=== PATIENT | female | born 1940 | race Caucasian/White ===

== ENCOUNTER → 2017-09-22 | Outpatient (CLI) | payer MEDICARE ==
[~2017-09-22] MED LIST: ADVAIR 250-501 EACH INH; ALENDRONATE SOD70 MG PO; ASPIRIN81 MG PO; COREG12.5 MG PO; COREG3.125 MG PO; DEXILANT60 MG PEG; DEXILANT60 MG PO; FOLIC ACID1 MG PO; LASIX40 MG PO; LISINOPRIL-HCT1 EACH PO; LISINOPRIL10 MG PO; LISINOPRIL2.5 MG PO; METHOTREXATE2.5 MG PO; MOBIC7.5 MG PO; MONTELUKAST SOD10 MG PO; MULTI-VITAMIN1 EACH PO; NORTRIPTYLINE H25 MG PO; POTASSIUM CHLO10 ME1 PO; PRAVASTATIN SOD20 MG PO; PRAVASTATIN SOD40 MG PO; PREDNISONE2.5 MG PO; PROAIR HFA INH8.5 GM INH; SIMVASTATIN20 MG PO; VESICARE5 MG PO; VITAMIN D31000 UNIT PO; ZEGERID 20 MG1 EACH PO
== END ==
LOC: SLEEP 20:11
PROVIDERS: ATTEND Internal Medicine Pulmonary Disease
DX: G47.33 Obstructive sleep apnea (adult) (pediatric) (principal)
CPT/HCPCS: 95811

== ENCOUNTER 2017-11-11 15:12 | Emergency (ER) | payer MEDICARE ==
[~2017-11-11] VITALS: Ht 156.2 cm; Wt 94.3 kg
--- NOTE | 2017-11-11 18:11 | Diagnostic Imaging Report ---
PROCEDURE:X-RAY RIGHT LOWER LEG COMPARISON:None. INDICATIONS:INFECTION AT SUTURE SITE LATERAL ANKLE FINDINGS: Normal mineralization. No acute, displaced fracture or dislocation. Status post total right knee replacement with intact hardware. Multiple phleboliths noted in the soft tissues anterior to the proximal and mid tibia. No areas of cortical erosion or destruction. Degenerative changes at the ankle mortise. CONCLUSION: No acute abnormalities. Saad López M.D. Dictated by: Saad López M.D. on 11/11/2017 at 18:15 Electronically approved by: Saad López M.D. on 11/11/2017 at 18:15
[2017-11-11] MEDS ORDERED: HYDROCODONE 7.5MG/IBUPROFEN 200MG TAB PO PRN (18:15)
[2017-11-11 20:58] VITALS: BP 148/83
[2017-11-11] MEDS ORDERED: NEOMYCIN/POLYMYXIN/BACITRACIN 15 GM TUBE TOP ONE (21:00)
[2017-11-11] MEDS ORDERED: BACITRACIN ZINC 0.9GM TP ONE (21:15)
== END 2017-11-11 21:37 | disposition home or self-care (01) ==
LOC: ER 15:12
DX: Z48.02 Encounter for removal of sutures (principal); L03.115 Cellulitis of right lower limb
CPT/HCPCS: 93971; 99283

== ENCOUNTER 2017-11-16 13:19 | Inpatient (IN) | payer MEDICARE ==
[~2017-11-16] VITALS: Ht 154.9 cm; Wt 103.9 kg
[2017-11-16] MEDS ORDERED: SODIUM CHLORIDE 0.9% 1000ML 1,000 ML IV STA (13:38)
[2017-11-16] MEDS ORDERED: VANCOMYCIN 1GM/NS 250 ML 250 ML IV SCH (13:45)
[2017-11-16] MEDS ORDERED: ASPIRIN 81 MG CHEW TAB PO ONE (13:45)
[2017-11-16 14:17] LABS: BASOPHILS % 0.4 % (0.0-1.0); EOSINOPHILS # (AUTO) 0.1 (0.0-0.4); EOSINOPHILS % 1.2 % (0.0-6.0); HEMATOCRIT 28.1 % (34.2-44.1); HEMOGLOBIN 8.9 g/dL (12.0-16.0); LYMPHOCYTES # (AUTO) 1.7 (1.0-3.2); LYMPHOCYTES % 17.4 % (18.0-39.1); MEAN CORPUSCULAR HEMOGLOBIN 28.2 pg (28-32); MEAN CORPUSCULAR HGB CONC 31.7 g/dL (31-35); MEAN CORPUSCULAR VOLUME 88.9 fL (81-99); MONOCYTES % 10.2 % (4.4-11.3); NEUTROPHILS # (AUTO) 6.8 (2.1-6.9); NEUTROPHILS % 70.3 % (38.7-80.0); PLATELET COUNT 333 x10e3/uL (140-360); RED BLOOD COUNT 3.16 x10e6/uL (3.6-5.1); RED CELL DISTRIBUTION WIDTH 14.6 % (11.7-14.4)
[2017-11-16 14:25] LABS: INR 3.05; PARTIAL THROMBOPLASTIN TIME 37.8 seconds (23.8-35.5); PROTHROMBIN TIME 29.6 seconds (11.9-14.5)
[2017-11-16] MEDS: SODIUM CHLORIDE 0.9% 1000ML 1,000 ML IV SCH (14:53)
--- NOTE | 2017-11-16 14:58 | Diagnostic Imaging Report ---
PROCEDURE:X-RAY RIGHT LOWER LEG COMPARISON:None. INDICATIONS:R/O GAS / OSTEOMYLITIS FINDINGS: Decreased mineralization. Status post total knee replacement with intact hardware. No evidence of cortical erosion or destruction. No acute fracture or dislocation. Degenerative changes in the right tibiotalar joint. Soft tissue convexity, at the level of the lateral aspect of the distal tibia, consistent with area of injury. Multiple soft tissue phleboliths. CONCLUSION: No radiographic evidence of osteomyelitis. Soft tissue convexity at the level of the lateral aspect of distal tibia, consistent with area of injury. No acute displaced fracture or dislocation. Saad López M.D. Dictated by: Saad López M.D. on 11/16/2017 at 15:03 Electronically approved by: Saad López M.D. on 11/16/2017 at 15:03
[2017-11-16] MEDS ORDERED: MORPHINE SULFATE 2 MG/ML SYR IV STA (15:02)
[2017-11-16] MEDS ORDERED: ONDANSETRON HCL INJ 2 MG/ML VIAL IV STA (15:02)
[2017-11-16 16:32] LABS: ANION GAP 14.4 mmol/L (8-16); CREATININE, SERUM 1.6 mg/dL (0.6-1.1); POTASSIUM 4.4 mmol/L (3.6-5.1)
[2017-11-16 16:45] VITALS: BP 147/67
[2017-11-16 17:10] LABS: CREATINE KINASE MB 0.9 ng/mL (0-5.0)
[2017-11-16] MEDS: PIPER-TAZ 3.375 GM 50 ML IV SCH ×2 (17:45→23:56)
[2017-11-16] MEDS ORDERED: XARELTO10 MG PO (17:50)
[2017-11-16 17:53] VITALS: BP 147/67
[2017-11-16 18:14] VITALS: BP 147/67
[2017-11-16 18:26] VITALS: BP 147/67
[2017-11-16 20:00] VITALS: BP 110/54
[2017-11-16] MEDS: VANCOMYCIN 1GM/NS 250 ML 250 ML IV SCH (20:18)
[2017-11-16 21:00] VITALS: BP 110/54
[2017-11-16 21:29] LABS: ALBUMIN 3.7 g/dL (3.5-5.0); ALBUMIN/GLOBULIN RATIO 1.4 (0.8-2.0); CALCIUM 9.9 mg/dL (8.4-10.2)
[2017-11-17] VITALS (7 sets, daily range): BP systolic 105–154; BP diastolic 54–67
[2017-11-17 00:05] LABS: BILIRUBIN,URINE NEGATIVE (NEGATIVE); CLARITY,URINE CLEAR (CLEAR); COLOR,URINE YELLOW (YELLOW); KETONES,URINE NEGATIVE (NEGATIVE); LEUKOCYTE ESTERASE ,URINE NEGATIVE (NEGATIVE); NITRITE,URINE NEGATIVE (NEGATIVE); PROTEIN,URINE DIPSTICK NEGATIVE (NEGATIVE); URINE UROBILINOGEN 0.2 mg/dL (0.2 - 1)
[2017-11-17 00:23] LABS: BACTERIA,URINE FEW /HPF; EPITHELIAL CELLS,URINE RARE /LPF; TRANSITIONAL EPI CELLS,URINE FEW; WBC,URINE (MAN) 0-5 /HPF (0-5)
[2017-11-17] MEDS: SODIUM CHLORIDE 0.9% 1000ML 1,000 ML IV SCH ×2 (04:59→16:37)
[2017-11-17] MEDS: PIPER-TAZ 3.375 GM 50 ML IV SCH ×3 (05:02→17:52)
[2017-11-17 05:09] LABS: BASOPHILS % 0.4 % (0.0-1.0); EOSINOPHILS # (AUTO) 0.2 (0.0-0.4); EOSINOPHILS % 2.1 % (0.0-6.0); HEMOGLOBIN 7.9 g/dL (12.0-16.0); LYMPHOCYTES # (AUTO) 2.1 (1.0-3.2); LYMPHOCYTES % 30.1 % (18.0-39.1); MEAN CORPUSCULAR HEMOGLOBIN 28.4 pg (28-32); MEAN CORPUSCULAR HGB CONC 31.6 g/dL (31-35); MEAN CORPUSCULAR VOLUME 89.9 fL (81-99); MONOCYTES % 14.1 % (4.4-11.3); NEUTROPHILS # (AUTO) 3.8 (2.1-6.9); PLATELET COUNT 282 x10e3/uL (140-360); RED BLOOD COUNT 2.78 x10e6/uL (3.6-5.1); RED CELL DISTRIBUTION WIDTH 14.7 % (11.7-14.4)
[2017-11-17 05:33] LABS: ALBUMIN 3.1 g/dL (3.5-5.0); ALBUMIN/GLOBULIN RATIO 1.2 (0.8-2.0); ANION GAP 12.7 mmol/L (8-16); CALCIUM 9.2 mg/dL (8.4-10.2); CREATININE, SERUM 1.52 mg/dL (0.57-1.11); POTASSIUM 4.7 mmol/L (3.5-5.1)
--- NOTE | 2017-11-17 07:53 | Consultation ---
DATE OF CONSULTATION: November 17, 2017 HISTORY OF PRESENT ILLNESS: Patient is a 77-year-old female who was a cruise ship and injured her leg. She has developed necrosis of the skin and swelling at the site of the leg injury. She was admitted to the hospital. She has pain in the leg. She has not had any drainage. She has not had any fever. PAST MEDICAL HISTORY: Significant for rheumatoid arthritis, coronary artery disease, hypertension. She had a recent pulmonary embolus a couple of months ago. She has chronic kidney disease. PREVIOUS SURGERIES: Include tonsil and adenoidectomy, appendectomy, hysterectomy, knee surgery. MEDICATIONS: At home are T[place], aspirin, Coreg, Advair, Prinivil, Singulair, and multivitamins. ALLERGIES: PENICILLIN, CHLORAMPHENICOL, LEVAQUIN, AND MUPIROCIN. FAMILY HISTORY: Noncontributory. SOCIAL HISTORY: The patient does not smoke cigarettes or drink alcohol. REVIEW OF SYSTEMS: She has not had any fever. PHYSICAL EXAMINATION GENERAL: The patient is awake and alert. VITALS: Were normal. She is afebrile. HEENT: Reveals no scleral icterus. NECK: Has no masses. LUNGS: Equal breath sounds are clear. CARDIAC: Regular rate and rhythm with no murmur. ABDOMEN: Soft without tenderness. EXTREMITIES: On the right leg and the lower leg, there is an area of swelling and erythema with overlying skin necrosis. The area is about 8 cm in diameter. There slight surrounding erythema. There is no drainage. NEUROLOGIC: Grossly intact. ASSESSMENT: This is a 77-year-old female with hematoma in the right leg with some cellulitis. She had been on blood thinners, and her PT and INR are very prolonged. She will probably require some surgical debridement this area, but plan to hold off for a couple days as she has been on Xarelto until yesterday. This was explained to the patient. Tentatively plan to schedule the surgery for 2 days from now. Thank you for asking me to see Ms. Whitman. Job#: [id number] RI
[2017-11-17] MEDS: CARVEDILOL 3.125 MG TAB PO SCH ×2 (08:33→16:37)
[2017-11-17] MEDS: LISINOPRIL 10 MG TAB PO SCH ×2 (08:34→16:37)
[2017-11-17] MEDS: SALMETEROL/FLUTICASONE 250/50 INH SCH ×2 (09:00→17:00)
[2017-11-17] MEDS ORDERED: CARVEDILOL 3.125 MG TAB PO SCH (09:00)
[2017-11-17] MEDS: VANCOMYCIN 1GM/NS 250 ML 250 ML IV SCH ×2 (09:29→21:00)
[2017-11-17] MEDS: ASPIRIN 81 MG CHEW TAB PO SCH (09:29)
[2017-11-17] MEDS: MULTIVITAMINS/MINERALS TAB PO SCH (09:30)
[2017-11-17] MEDS: MONTELUKAST SODIUM 10 MG TAB PO SCH (21:00)
[2017-11-17] MEDS: PRAVASTATIN 20 MG TAB PO SCH (21:00)
[2017-11-18] VITALS (8 sets, daily range): BP systolic 107–158; BP diastolic 53–66
[2017-11-18] MEDS: SODIUM CHLORIDE 0.9% 1000ML 1,000 ML IV SCH ×2 (05:06→21:00)
[2017-11-18 05:55] LABS: BASOPHILS # (AUTO) 0.1 (0.0-0.1); BASOPHILS % 0.8 % (0.0-1.0); EOSINOPHILS # (AUTO) 0.2 (0.0-0.4); EOSINOPHILS % 3.1 % (0.0-6.0); HEMATOCRIT 24.6 % (34.2-44.1); HEMOGLOBIN 7.5 g/dL (12.0-16.0); LYMPHOCYTES % 30.6 % (18.0-39.1); MEAN CORPUSCULAR HGB CONC 30.5 g/dL (31-35); MEAN CORPUSCULAR VOLUME 91.8 fL (81-99); MONOCYTES # (AUTO) 0.9 (0.2-0.8); MONOCYTES % 13.3 % (4.4-11.3); NEUTROPHILS # (AUTO) 3.3 (2.1-6.9); NEUTROPHILS % 51.9 % (38.7-80.0); PLATELET COUNT 247 x10e3/uL (140-360); RED BLOOD COUNT 2.68 x10e6/uL (3.6-5.1); RED CELL DISTRIBUTION WIDTH 14.7 % (11.7-14.4)
[2017-11-18] MEDS: PIPER-TAZ 3.375 GM 50 ML IV SCH ×4 (06:00→18:13)
[2017-11-18 06:21] LABS: ALBUMIN 2.9 g/dL (3.5-5.0); ALBUMIN/GLOBULIN RATIO 1.1 (0.8-2.0); ANION GAP 12.2 mmol/L (8-16); CALCIUM 8.9 mg/dL (8.4-10.2); CREATININE, SERUM 1.2 mg/dL (0.57-1.11); POTASSIUM 4.2 mmol/L (3.5-5.1)
[2017-11-18] MEDS: SALMETEROL/FLUTICASONE 250/50 INH SCH ×2 (08:35→18:55)
[2017-11-18] MEDS: CARVEDILOL 3.125 MG TAB PO SCH ×2 (09:21→17:18)
[2017-11-18] MEDS: ASPIRIN 81 MG CHEW TAB PO SCH (09:21)
[2017-11-18] MEDS: MULTIVITAMINS/MINERALS TAB PO SCH (09:21)
[2017-11-18] MEDS: VANCOMYCIN 1GM/NS 250 ML 250 ML IV SCH ×2 (09:21→21:00)
[2017-11-18] MEDS: LISINOPRIL 10 MG TAB PO SCH ×2 (09:22→17:18)
[2017-11-18] MEDS ORDERED: ONDANSETRON HCL INJ 2 MG/ML VIAL IV PRN (12:30)
--- NOTE | 2017-11-18 12:57 | Diagnostic Imaging Report ---
PROCEDURE: A single AP view of the chest (2 films were obtained both having same date and time stamp). COMPARISON: None. INDICATIONS: PICC LINE PLACEMENT FINDINGS: Lines/tubes: One film shows the PICC extending into the neck. Another film shows the PICC extending into the appropriate location with tip overlying the SVC. Lungs: The lungs are well inflated and clear. There is no evidence of pneumonia or pulmonary edema. Pleura: There is no pleural effusion or pneumothorax. Heart and mediastinum: The heart and the mediastinum are unremarkable. Bones: No acute bony abnormality. IMPRESSION: 1. No acute cardiopulmonary disease. 2. PICC line as described above. Franco Wynn D.O. Dictated by: Franco Wynn D.O. on 11/18/2017 at 13:02 Electronically approved by: Franco Wynn D.O. on 11/18/2017 at 13:02
[2017-11-18] MEDS: MONTELUKAST SODIUM 10 MG TAB PO SCH (21:00)
[2017-11-18] MEDS: PRAVASTATIN 20 MG TAB PO SCH (21:00)
[2017-11-18] MEDS: HYDROCODONE/APAP 10MG-325MG TAB PO PRN (21:55)
[2017-11-19] VITALS (7 sets, daily range): BP systolic 114–166; BP diastolic 52–68
[2017-11-19] MEDS: PIPER-TAZ 3.375 GM 50 ML IV SCH ×4 (05:34→18:15)
[2017-11-19] MEDS: SALMETEROL/FLUTICASONE 250/50 INH SCH ×2 (07:13→19:05)
[2017-11-19] MEDS: SODIUM CHLORIDE 0.9% 1000ML 1,000 ML IV SCH ×2 (08:39→22:47)
[2017-11-19] MEDS: ASPIRIN 81 MG CHEW TAB PO SCH (09:00)
[2017-11-19] MEDS: MULTIVITAMINS/MINERALS TAB PO SCH (09:00)
[2017-11-19] MEDS: VANCOMYCIN 1GM/NS 250 ML 250 ML IV SCH ×3 (09:00→21:00)
[2017-11-19] MEDS: LISINOPRIL 10 MG TAB PO SCH ×2 (09:15→18:15)
[2017-11-19] MEDS: CARVEDILOL 3.125 MG TAB PO SCH ×2 (09:15→18:15)
[2017-11-19] MEDS ORDERED: FENTANYL CITRATE/PF 100MCG/2 ML INJ ONE ×2 (11:03→16:33)
[2017-11-19] MEDS ORDERED: MIDAZOLAM HCL 2 MG/2 ML VIAL ONE (11:03)
[2017-11-19] MEDS ORDERED: SEVOFLURANE INHAL SOLN 250 ML PEN BTL ONE (11:12)
[2017-11-19] MEDS ORDERED: LIDOCAINE HCL 2% LOCAL INJ 5 ML SDV VIAL INJ ONE (11:12)
[2017-11-19] MEDS ORDERED: PROPOFOL IV EMULSION 10 MG/ML 20 ML VIAL ONE (11:12)
[2017-11-19] MEDS ORDERED: ONDANSETRON HCL INJ 2 MG/ML VIAL ONE (11:12)
--- NOTE | 2017-11-19 16:53 | Operative Report ---
DATE OF PROCEDURE: November 19, 2017 PREOPERATIVE DIAGNOSIS: Necrotic wound, right leg. POSTOPERATIVE DIAGNOSIS: Necrotic wound, right leg. PROCEDURE PERFORMED: Excisional debridement of necrotic wound, right leg. Skin and subcutaneous tissue 65 square centimeters. 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 ANESTHESIA: General. INDICATIONS AND FINDINGS: Patient is a 77-year-old female who suffered injury while on a cruise. She developed an area of tissue necrosis in the right leg. Surgery was about 8 x 8 cm area of necrotic skin, subcutaneous tissue with underlying hematoma which was excised. TECHNIQUE: After adequate general endotracheal anesthesia with patient in supine position, the right leg was prepped and draped in sterile fashion with Betadine solution. Necrotic skin was excised using electrocautery. This was skin and subcutaneous tissue area of 8 x 8 cm. There was some hematoma sample taken for culture and sensitivity. The hemostasis was achieved with electrocautery. The wound was then irrigated with saline. It was then dressed open with saline moistened gauze and sterile dressing applied. Patient tolerated procedure well. Estimated blood loss was 10 mL. There were no complications. All counts were correct. Patient was taken to the recovery room in satisfactory condition. Job#: [id number] cc:PAPA ANDRE MD
[2017-11-19] MEDS: MONTELUKAST SODIUM 10 MG TAB PO SCH (21:56)
[2017-11-19] MEDS: PRAVASTATIN 20 MG TAB PO SCH (21:57)
[2017-11-19] MEDS: HYDROCODONE/APAP 10MG-325MG TAB PO PRN (21:57)
[2017-11-20] VITALS (7 sets, daily range): BP systolic 106–151; BP diastolic 54–65
[2017-11-20] MEDS: PIPER-TAZ 3.375 GM 50 ML IV SCH ×5 (00:07→23:29)
[2017-11-20] MEDS: SALMETEROL/FLUTICASONE 250/50 INH SCH ×2 (07:21→19:40)
[2017-11-20] MEDS: LISINOPRIL 10 MG TAB PO SCH ×2 (08:40→17:00)
[2017-11-20] MEDS: CARVEDILOL 3.125 MG TAB PO SCH ×2 (08:40→16:55)
[2017-11-20] MEDS: ASPIRIN 81 MG CHEW TAB PO SCH (08:40)
[2017-11-20] MEDS: MULTIVITAMINS/MINERALS TAB PO SCH (08:40)
[2017-11-20] MEDS: VANCOMYCIN 1GM/NS 250 ML 250 ML IV SCH ×2 (09:30→21:34)
[2017-11-20] MEDS: SODIUM CHLORIDE 0.9% 1000ML 1,000 ML IV SCH ×2 (11:19→23:29)
[2017-11-20] MEDS: PRAVASTATIN 20 MG TAB PO SCH (21:34)
[2017-11-20] MEDS: MONTELUKAST SODIUM 10 MG TAB PO SCH (21:35)
[2017-11-20] MEDS: HYDROCODONE/APAP 10MG-325MG TAB PO PRN (21:45)
[2017-11-21] VITALS (8 sets, daily range): BP systolic 127–188; BP diastolic 60–80
[2017-11-21] MEDS: PIPER-TAZ 3.375 GM 50 ML IV SCH ×4 (05:11→23:54)
[2017-11-21 05:57] LABS: BASOPHILS % 0.7 % (0.0-1.0); EOSINOPHILS # (AUTO) 0.3 (0.0-0.4); EOSINOPHILS % 5.2 % (0.0-6.0); HEMOGLOBIN 7.1 g/dL (12.0-16.0); LYMPHOCYTES # (AUTO) 1.6 (1.0-3.2); LYMPHOCYTES % 29.3 % (18.0-39.1); MEAN CORPUSCULAR HEMOGLOBIN 28.4 pg (28-32); MEAN CORPUSCULAR VOLUME 91.6 fL (81-99); MONOCYTES # (AUTO) 0.7 (0.2-0.8); MONOCYTES % 12.7 % (4.4-11.3); NEUTROPHILS # (AUTO) 2.8 (2.1-6.9); NEUTROPHILS % 51.9 % (38.7-80.0); PLATELET COUNT 231 x10e3/uL (140-360); RED CELL DISTRIBUTION WIDTH 14.7 % (11.7-14.4)
[2017-11-21 06:12] LABS: HEMATOCRIT 22.9 % (34.2-44.1)
[2017-11-21 06:16] LABS: ANION GAP 8.7 mmol/L (8-16); BLOOD UREA NITROGEN 12 mg/dL (7-26); BUN/CREATININE RATIO 16 (6-25); CALCIUM 8.3 mg/dL (8.4-10.2); CARBON DIOXIDE 20 mmol/L (22-29); CHLORIDE 116 mmol/L (98-107); CREATININE, SERUM 0.77 mg/dL (0.57-1.11); EST GLOMERULAR FILTRATION RATE > 60 ML/MIN (60-); GLUCOSE 86 mg/dL (74-118); POTASSIUM 3.7 mmol/L (3.5-5.1); SODIUM 141 mmol/L (136-145)
[2017-11-21] MEDS ORDERED: FUROSEMIDE INJ 10 MG/ML 2 ML VIAL IV PRN (06:30)
[2017-11-21] MEDS ORDERED: SODIUM CHLORIDE 0.9% 250ML 250 ML IV ONE (06:30)
[2017-11-21] MEDS: SALMETEROL/FLUTICASONE 250/50 INH SCH ×2 (07:30→19:52)
[2017-11-21] MEDS: CARVEDILOL 3.125 MG TAB PO SCH ×2 (08:16→17:00)
[2017-11-21] MEDS: LISINOPRIL 10 MG TAB PO SCH ×2 (08:16→17:05)
[2017-11-21] MEDS: ASPIRIN 81 MG CHEW TAB PO SCH (08:16)
[2017-11-21] MEDS: MULTIVITAMINS/MINERALS TAB PO SCH (08:16)
[2017-11-21 09:28] LABS: % IRON SATURATION 11 % (15-50); IRON 24 ug/dL (50-170); TOTAL IRON BINDING CAPACITY 225 ug/dL (261-478); TRANSFERRIN 161 mg/dL (180-382)
[2017-11-21] MEDS: VANCOMYCIN 1GM/NS 250 ML 250 ML IV SCH ×2 (09:30→21:20)
[2017-11-21] MEDS ORDERED: SODIUM CHLORIDE 0.9% 250ML 250 ML ONE (10:18)
[2017-11-21] MEDS: SODIUM CHLORIDE 0.9% 1000ML 1,000 ML IV SCH (13:59)
[2017-11-21] MEDS: HYDROCODONE/APAP 10MG-325MG TAB PO PRN ×2 (14:40→21:20)
[2017-11-21] MEDS: PRAVASTATIN 20 MG TAB PO SCH (21:20)
[2017-11-21] MEDS: MONTELUKAST SODIUM 10 MG TAB PO SCH (21:20)
[2017-11-22] VITALS (9 sets, daily range): BP systolic 111–164; BP diastolic 53–68
[2017-11-22] MEDS: PIPER-TAZ 3.375 GM 50 ML IV SCH ×3 (05:15→17:49)
[2017-11-22] MEDS: SODIUM CHLORIDE 0.9% 1000ML 1,000 ML IV SCH ×2 (05:15→15:22)
[2017-11-22 05:52] LABS: BASOPHILS # (AUTO) 0.1 (0.0-0.1); BASOPHILS % 0.9 % (0.0-1.0); EOSINOPHILS # (AUTO) 0.3 (0.0-0.4); EOSINOPHILS % 3.9 % (0.0-6.0); HEMATOCRIT 28.1 % (34.2-44.1); HEMOGLOBIN 8.9 g/dL (12.0-16.0); LYMPHOCYTES % 28.4 % (18.0-39.1); MEAN CORPUSCULAR HEMOGLOBIN 28.3 pg (28-32); MEAN CORPUSCULAR HGB CONC 31.7 g/dL (31-35); MEAN CORPUSCULAR VOLUME 89.5 fL (81-99); MONOCYTES # (AUTO) 0.9 (0.2-0.8); MONOCYTES % 13.5 % (4.4-11.3); NEUTROPHILS # (AUTO) 3.6 (2.1-6.9); NEUTROPHILS % 52.6 % (38.7-80.0); PLATELET COUNT 256 x10e3/uL (140-360); RED BLOOD COUNT 3.14 x10e6/uL (3.6-5.1); RED CELL DISTRIBUTION WIDTH 15.4 % (11.7-14.4)
[2017-11-22 06:17] LABS: ALANINE AMINOTRANSFERASE 8 IU/L (0-55); ALBUMIN 2.9 g/dL (3.5-5.0); ALBUMIN/GLOBULIN RATIO 1.1 (0.8-2.0); ALKALINE PHOSPHATASE 42 IU/L (40-150); ANION GAP 9.8 mmol/L (8-16); BLOOD UREA NITROGEN 15 mg/dL (7-26); BUN/CREATININE RATIO 18 (6-25); CALCIUM 9.1 mg/dL (8.4-10.2); CARBON DIOXIDE 22 mmol/L (22-29); CHLORIDE 113 mmol/L (98-107); CREATININE, SERUM 0.84 mg/dL (0.57-1.11); EST GLOMERULAR FILTRATION RATE > 60 ML/MIN (60-); GLUCOSE 86 mg/dL (74-118); POTASSIUM 3.8 mmol/L (3.5-5.1); SODIUM 141 mmol/L (136-145)
[2017-11-22] MEDS: SALMETEROL/FLUTICASONE 250/50 INH SCH ×2 (09:00→19:27)
[2017-11-22] MEDS: VANCOMYCIN 1GM/NS 250 ML 250 ML IV SCH ×2 (09:00→21:00)
[2017-11-22] MEDS: ASPIRIN 81 MG CHEW TAB PO SCH (09:22)
[2017-11-22] MEDS: CARVEDILOL 3.125 MG TAB PO SCH ×2 (09:22→17:50)
[2017-11-22] MEDS: MULTIVITAMINS/MINERALS TAB PO SCH (09:22)
[2017-11-22] MEDS: LISINOPRIL 10 MG TAB PO SCH ×2 (09:22→17:49)
[2017-11-22] MEDS: HYDROCODONE/APAP 10MG-325MG TAB PO PRN ×2 (15:23→21:39)
[2017-11-22] MEDS: MONTELUKAST SODIUM 10 MG TAB PO SCH (21:25)
[2017-11-22] MEDS: PRAVASTATIN 20 MG TAB PO SCH (21:25)
[2017-11-23] VITALS (8 sets, daily range): BP systolic 122–156; BP diastolic 57–86
[2017-11-23] MEDS: PIPER-TAZ 3.375 GM 50 ML IV SCH ×3 (00:24→12:18)
[2017-11-23] MEDS: SODIUM CHLORIDE 0.9% 1000ML 1,000 ML IV SCH ×2 (05:13→08:21)
[2017-11-23] MEDS: SALMETEROL/FLUTICASONE 250/50 INH SCH ×2 (07:35→20:05)
[2017-11-23] MEDS: LISINOPRIL 10 MG TAB PO SCH ×2 (08:25→17:40)
[2017-11-23] MEDS: CARVEDILOL 3.125 MG TAB PO SCH ×2 (08:25→17:40)
[2017-11-23] MEDS: ASPIRIN 81 MG CHEW TAB PO SCH (08:25)
[2017-11-23] MEDS: MULTIVITAMINS/MINERALS TAB PO SCH (08:25)
[2017-11-23] MEDS: HYDROCODONE/APAP 10MG-325MG TAB PO PRN ×2 (08:40→21:22)
[2017-11-23] MEDS: VANCOMYCIN 1GM/NS 250 ML 250 ML IV SCH ×2 (09:00→21:31)
[2017-11-23] MEDS: MONTELUKAST SODIUM 10 MG TAB PO SCH (21:20)
[2017-11-23] MEDS: PRAVASTATIN 20 MG TAB PO SCH (21:20)
[2017-11-24] MEDS ORDERED: PIPER-TAZ 3.375 GM 50 ML IV SCH
[2017-11-24] MEDS: HYDROCODONE/APAP 10MG-325MG TAB PO PRN (02:01)
[2017-11-24] MEDS: HYDROXYZINE HCL 25 MG TAB PO PRN ×2 (05:06→14:50)
[2017-11-24] MEDS ORDERED: METHYLPREDNISOLONE SOD SUCC 40 MG/ML VIAL IV ONE (05:30)
[2017-11-24] MEDS: CEFTRIAXONE SOD 1 GM VIAL IV SCH (06:08)
[2017-11-24 06:21] VITALS: BP 134/63
[2017-11-24 08:00] VITALS: BP 118/67
[2017-11-24] MEDS: CARVEDILOL 3.125 MG TAB PO SCH ×2 (08:44→17:00)
[2017-11-24] MEDS: MULTIVITAMINS/MINERALS TAB PO SCH (08:44)
[2017-11-24] MEDS: VANCOMYCIN 1GM/NS 250 ML 250 ML IV SCH ×2 (08:44→21:15)
[2017-11-24] MEDS: LISINOPRIL 10 MG TAB PO SCH ×2 (08:44→17:00)
[2017-11-24] MEDS: ASPIRIN 81 MG CHEW TAB PO SCH (08:44)
[2017-11-24] MEDS: SALMETEROL/FLUTICASONE 250/50 INH SCH ×3 (09:00→20:15)
[2017-11-24 12:00] VITALS: BP 173/96
[2017-11-24 12:36] VITALS: BP 118/67
[2017-11-24 16:00] VITALS: BP 126/63
[2017-11-24 20:00] VITALS: BP 132/59
[2017-11-24] MEDS: PRAVASTATIN 20 MG TAB PO SCH (21:44)
[2017-11-24] MEDS: DIPHENHYDRAMINE HCL INJ 50 MG/ML VIAL IV PRN (21:44)
[2017-11-24] MEDS: MONTELUKAST SODIUM 10 MG TAB PO SCH (21:44)
[2017-11-25] VITALS (8 sets, daily range): BP systolic 136–182; BP diastolic 64–77
[2017-11-25] MEDS: DIPHENHYDRAMINE HCL INJ 50 MG/ML VIAL IV PRN ×4 (03:48→23:35)
[2017-11-25] MEDS: CEFTRIAXONE SOD 1 GM VIAL IV SCH (06:11)
[2017-11-25] MEDS: METHYLPREDNISOLONE SOD SUCC 125 MG/2ML VIAL IV SCH ×3 (06:34→22:23)
[2017-11-25] MEDS: SALMETEROL/FLUTICASONE 250/50 INH SCH ×2 (07:12→20:15)
[2017-11-25] MEDS: LISINOPRIL 10 MG TAB PO SCH ×2 (09:00→17:45)
[2017-11-25] MEDS: CARVEDILOL 3.125 MG TAB PO SCH ×2 (09:00→17:45)
[2017-11-25] MEDS: MULTIVITAMINS/MINERALS TAB PO SCH (09:06)
[2017-11-25] MEDS: ASPIRIN 81 MG CHEW TAB PO SCH (09:06)
[2017-11-25] MEDS: MONTELUKAST SODIUM 10 MG TAB PO SCH (20:40)
[2017-11-25] MEDS: PRAVASTATIN 20 MG TAB PO SCH (20:40)
[2017-11-26] VITALS (8 sets, daily range): BP systolic 123–197; BP diastolic 58–84
--- NOTE | 2017-11-26 05:38 | Progress Note ---
DATE: November 26, 2017 The patient states her rash is a little bit better, but the itching is still very intense. No new complaints. OBJECTIVE VITAL SIGNS: Stable. She was afebrile, but her vital signs have shown an increased systolic blood pressure since the Solu-Medrol. GENERAL: She is in no apparent distress lying in bed. SKIN: Does show the rash to be fading, but still extensive especially on the left side. CARDIOVASCULAR: Regular rate and rhythm. LUNGS: Clear to auscultation bilaterally. ABDOMEN: Good bowel sounds. Soft and nontender. EXTREMITIES: Show no clubbing or cyanosis. The wound was dressed, but the patient showed me pictures and the base is very clean. It appears to be healing well. NEUROLOGICAL: Nonfocal. ASSESSMENT AND PLAN 1. Cellulitis: Continue with current care. 2. Allergic reaction with dermatitis: Continue with the Solu-Medrol since it is much better. Will anticipate discharge in 1-2 days as the rash improves. 3. Chronic obstructive pulmonary disease: Continue with current care. 4. Hypertension: Continue with current care and monitoring. 5. Anemia, stable. Please see hospital chart for details. Job#: [id number] SD
[2017-11-26] MEDS: CEFTRIAXONE SOD 1 GM VIAL IV SCH (06:23)
[2017-11-26] MEDS: METHYLPREDNISOLONE SOD SUCC 125 MG/2ML VIAL IV SCH ×3 (06:23→21:03)
[2017-11-26] MEDS: MULTIVITAMINS/MINERALS TAB PO SCH (08:55)
[2017-11-26] MEDS: CARVEDILOL 3.125 MG TAB PO SCH ×2 (08:55→17:40)
[2017-11-26] MEDS: ASPIRIN 81 MG CHEW TAB PO SCH (08:55)
[2017-11-26] MEDS: LISINOPRIL 10 MG TAB PO SCH ×2 (08:55→17:40)
[2017-11-26] MEDS: DIPHENHYDRAMINE HCL 30 GM TUBE TOP SCH ×4 (10:00→21:03)
[2017-11-26] MEDS: SALMETEROL/FLUTICASONE 250/50 INH SCH (17:00)
[2017-11-26] MEDS: MONTELUKAST SODIUM 10 MG TAB PO SCH (20:58)
[2017-11-26] MEDS ORDERED: SIMVASTATIN 20 MG TAB PO SCH (21:00)
[2017-11-26] MEDS: DIPHENHYDRAMINE HCL INJ 50 MG/ML VIAL IV PRN (22:19)
[2017-11-27 00:57] VITALS: BP 156/71
[2017-11-27 06:05] VITALS: BP 148/67
[2017-11-27] MEDS: CEFTRIAXONE SOD 1 GM VIAL IV SCH (06:26)
[2017-11-27] MEDS: METHYLPREDNISOLONE SOD SUCC 125 MG/2ML VIAL IV SCH (06:30)
[2017-11-27 08:00] VITALS: BP 148/65
[2017-11-27] MEDS: LISINOPRIL 10 MG TAB PO SCH (09:24)
[2017-11-27] MEDS: CARVEDILOL 3.125 MG TAB PO SCH (09:24)
[2017-11-27] MEDS: MULTIVITAMINS/MINERALS TAB PO SCH (09:24)
[2017-11-27] MEDS: DIPHENHYDRAMINE HCL 30 GM TUBE TOP SCH (09:24)
[2017-11-27] MEDS: ASPIRIN 81 MG CHEW TAB PO SCH (09:24)
[2017-11-27 12:00] VITALS: BP 169/77
[2017-11-27] MEDS ORDERED: BACTRIM DS TAB1 EACH PO (12:36)
== END 2017-11-27 12:47 | disposition home or self-care (01) | DRG 571 ==
LOC: ER 13:19 → ERHOLD 14:12 → MED/SURG2 16:38
PROVIDERS: ADMIT Internal Medicine; ATTEND Internal Medicine
PROC: 02HV33Z Insertion of Infusion Device into Superior Vena Cava, Percutaneous Approach (ICD-10-PCS; 2017-11-18)
PROC: 0JBN0ZZ Excision of Right Lower Leg Subcutaneous Tissue and Fascia, Open Approach (ICD-10-PCS; principal; 2017-11-19 16:02)
PROC: 30233N1 Transfusion of Nonautologous Red Blood Cells into Peripheral Vein, Percutaneous Approach (ICD-10-PCS; 2017-11-21)
DX: L03.115 Cellulitis of right lower limb (principal); Z68.41 Body mass index [BMI] 40.0-44.9, adult; I13.0 Hypertensive heart and chronic kidney disease with heart failure and stage 1 through stage 4 chronic kidney disease, or unspecified chronic kidney disease; N17.9 Acute kidney failure, unspecified; N18.3 Chronic kidney disease, stage 3 (moderate); S81.801A Unspecified open wound, right lower leg, initial encounter; I25.10 Atherosclerotic heart disease of native coronary artery without angina pectoris; M06.9 Rheumatoid arthritis, unspecified; D64.9 Anemia, unspecified; E66.01 Morbid (severe) obesity due to excess calories; Z86.711 Personal history of pulmonary embolism; Z88.1 Allergy status to other antibiotic agents; Z88.0 Allergy status to penicillin; Z88.8 Allergy status to other drugs, medicaments and biological substances; Z79.01 Long term (current) use of anticoagulants; J44.9 Chronic obstructive pulmonary disease, unspecified; L23.89 Allergic contact dermatitis due to other agents; L27.1 Localized skin eruption due to drugs and medicaments taken internally; I50.9 Heart failure, unspecified; T36.0X5A Adverse effect of penicillins, initial encounter; Y92.230 Patient room in hospital as the place of occurrence of the external cause; Z96.651 Presence of right artificial knee joint; I25.2 Old myocardial infarction; K21.9 Gastro-esophageal reflux disease without esophagitis
CPT/HCPCS: 36415; 36430; 36569; 71045; 80048; 80053; 80202; 81001; 82550; 82553; 82948; 83540; 83605; 83735; 84466; 84484; 85025; 85610; 85730; 86850; 86900; 86920; 87040; 87071; 87075; 87086; 87205; 88304; 93005; 94640; 96367; 96374; 96375; 96376; 99284; J0696; J1200; J1940; J2001; J2250; J2270; J2405; J2543; J2920; J2930; J3370; J3410; J7030; J7050; P9016

== ENCOUNTER 2018-04-11 11:15 | Observation (INO) | payer MEDICARE ==
[~2018-04-11] VITALS: Ht 154.9 cm; Wt 103.9 kg
[~2018-04-11 11:15] MED LIST changes: +BACTRIM DS TAB1 EACH PO; +XARELTO10 MG PO
[2018-04-11] MEDS ORDERED: ASPIRIN 81 MG CHEW TAB PO ONE ×2 (11:30→16:00)
[2018-04-11] MEDS ORDERED: KEFLEX500 MG PO (12:02)
[2018-04-11 12:06] LABS: BASOPHILS % 0.4 % (0.0-1.0); EOSINOPHILS # (AUTO) 0.1 (0.0-0.4); EOSINOPHILS % 1.1 % (0.0-6.0); HEMOGLOBIN 11.2 g/dL (12.0-16.0); LYMPHOCYTES # (AUTO) 2.1 (1.0-3.2); LYMPHOCYTES % 27.8 % (18.0-39.1); MEAN CORPUSCULAR HEMOGLOBIN 28.5 pg (28-32); MEAN CORPUSCULAR HGB CONC 30.3 g/dL (31-35); MEAN CORPUSCULAR VOLUME 94.1 fL (81-99); MONOCYTES # (AUTO) 0.8 (0.2-0.8); MONOCYTES % 10.2 % (4.4-11.3); NEUTROPHILS # (AUTO) 4.5 (2.1-6.9); NEUTROPHILS % 60.4 % (38.7-80.0); PLATELET COUNT 141 x10e3/uL (140-360); RED BLOOD COUNT 3.93 x10e6/uL (3.6-5.1); RED CELL DISTRIBUTION WIDTH 15.7 % (11.7-14.4)
[2018-04-11 12:11] LABS: INR 0.95; PARTIAL THROMBOPLASTIN TIME 24.8 seconds (23.8-35.5); PROTHROMBIN TIME 13.5 seconds (11.9-14.5)
--- NOTE | 2018-04-11 12:11 | Diagnostic Imaging Report ---
Examination: Single AP view of the chest. COMPARISON: None. INDICATION: Chest pain DISCUSSION: Lines/tubes: None. Lungs: The lungs are well inflated and clear. No pneumonia or pulmonary edema. Pleura: No pleural effusion or pneumothorax. Heart and mediastinum: The heart and the mediastinum are unremarkable. Bones and soft tissues: No acute bony abnormalities. IMPRESSION: 1. No acute cardiopulmonary abnormalities. Signed by: Dr. Baldo Tilley M.D. on 04/11/2018 12:07 PM
[2018-04-11 12:45] LABS: CLARITY,URINE CLEAR (CLEAR); COLOR,URINE YELLOW (YELLOW); LEUKOCYTE ESTERASE ,URINE NEGATIVE (NEGATIVE); NITRITE,URINE NEGATIVE (NEGATIVE); PROTEIN,URINE DIPSTICK NEGATIVE (NEGATIVE)
[2018-04-11 12:46] LABS: BILIRUBIN,URINE NEGATIVE (NEGATIVE); KETONES,URINE NEGATIVE (NEGATIVE); URINE UROBILINOGEN 0.2 mg/dL (0.2 - 1)
[2018-04-11 12:52] LABS: BACTERIA,URINE MODERATE /HPF; EPITHELIAL CELLS,URINE FEW /LPF; HYALINE CASTS 0-1 (0-1)
[2018-04-11 12:53] LABS: MUCUS,URINE FEW (RARE)
[2018-04-11 13:35] LABS: ALANINE AMINOTRANSFERASE 15 IU/L (0-55); ALBUMIN 3.7 g/dL (3.5-5.0); ALBUMIN/GLOBULIN RATIO 1.4 (0.8-2.0); ALKALINE PHOSPHATASE 43 IU/L (40-150); ANION GAP 14.9 mmol/L (8-16); BLOOD UREA NITROGEN 28 mg/dL (7-26); BUN/CREATININE RATIO 34 (6-25); CALCIUM 9.7 mg/dL (8.4-10.2); CARBON DIOXIDE 20 mmol/L (22-29); CHLORIDE 107 mmol/L (98-107); CREATINE KINASE 46 IU/L (29-168); CREATININE, SERUM 0.82 mg/dL (0.57-1.11); EST GLOMERULAR FILTRATION RATE > 60 ML/MIN (60-); GLUCOSE 95 mg/dL (74-118); POTASSIUM 3.9 mmol/L (3.5-5.1); SODIUM 138 mmol/L (136-145)
[2018-04-11] MEDS ORDERED: MORPHINE SULFATE 2 MG/ML SYR IV PRN (15:45)
[2018-04-11 17:37] LABS: CREATINE KINASE 43 IU/L (29-168)
[2018-04-11 20:00] VITALS: BP 153/67
[2018-04-12] VITALS: BP 139/65
[2018-04-12] MEDS ORDERED: ALBUTEROL SULF 0.083% NEB SOLN 3 ML NEB NEB PRN (00:30)
[2018-04-12 04:00] VITALS: BP 122/59
[2018-04-12 05:38] LABS: BASOPHILS % 0.3 % (0.0-1.0); EOSINOPHILS # (AUTO) 0.1 (0.0-0.4); EOSINOPHILS % 1.7 % (0.0-6.0); HEMOGLOBIN 10.4 g/dL (12.0-16.0); LYMPHOCYTES # (AUTO) 2.7 (1.0-3.2); MEAN CORPUSCULAR HEMOGLOBIN 27.9 pg (28-32); MEAN CORPUSCULAR HGB CONC 31.5 g/dL (31-35); MEAN CORPUSCULAR VOLUME 88.5 fL (81-99); MONOCYTES % 13.2 % (4.4-11.3); NEUTROPHILS # (AUTO) 3.4 (2.1-6.9); NEUTROPHILS % 47.7 % (38.7-80.0); PLATELET COUNT 182 x10e3/uL (140-360); RED BLOOD COUNT 3.73 x10e6/uL (3.6-5.1); RED CELL DISTRIBUTION WIDTH 15.7 % (11.7-14.4)
[2018-04-12 06:02] LABS: CREATINE KINASE 44 IU/L (29-168)
[2018-04-12 06:24] LABS: ALANINE AMINOTRANSFERASE 14 IU/L (0-55); ALBUMIN 3.3 g/dL (3.5-5.0); ALBUMIN/GLOBULIN RATIO 1.2 (0.8-2.0); ALKALINE PHOSPHATASE 37 IU/L (40-150); BLOOD UREA NITROGEN 29 mg/dL (7-26); BUN/CREATININE RATIO 35 (6-25); CALCIUM 9.6 mg/dL (8.4-10.2); CARBON DIOXIDE 21 mmol/L (22-29); CHLORIDE 110 mmol/L (98-107); CHOL/HDL RATIO 3.2 (3.0-3.6); CHOLESTEROL 158 MD/DL (0-199); CREATININE, SERUM 0.83 mg/dL (0.57-1.11); EST GLOMERULAR FILTRATION RATE > 60 ML/MIN (60-); GLUCOSE 88 mg/dL (74-118); HDL CHOLESTEROL 49 MG/DL (40-60); LDL CHOLESTEROL 87 MG/DL (60-130); SODIUM 141 mmol/L (136-145); TRIGLYCERIDES 110 MG/DL (0-149)
--- NOTE | 2018-04-12 06:38 | Diagnostic Imaging Report ---
EXAMINATION: CHEST SINGLE (PORTABLE) INDICATION: Chest pain. COMPARISON: 04/11/2018 FINDINGS: AP view TUBES and LINES: None. LUNGS: Lungs are well inflated. Lungs are clear. There is no evidence of pneumonia or pulmonary edema. PLEURA: No pleural effusion or pneumothorax. HEART AND MEDIASTINUM: The cardiomediastinal silhouette is unremarkable. BONES AND SOFT TISSUES: No acute osseous lesion. Soft tissues are unremarkable. UPPER ABDOMEN: No free air under the diaphragm. IMPRESSION: No acute thoracic abnormality. Signed by: DR. Jossue Tracy MD on 04/12/2018 6:35 AM
[2018-04-12 08:38] VITALS: BP 141/64
[2018-04-12 09:00] VITALS: BP 141/64
[2018-04-12] MEDS ORDERED: LISINOPRIL 10 MG TAB PO SCH (09:00)
[2018-04-12] MEDS ORDERED: CARVEDILOL 3.125 MG TAB PO SCH (09:00)
[2018-04-12] MEDS ORDERED: MULTIVITAMINS/MINERALS TAB PO SCH (09:00)
[2018-04-12] MEDS ORDERED: ASPIRIN 81 MG ENTERIC COATED PO SCH (09:00)
[2018-04-12] MEDS ORDERED: CEPHALEXIN 500 MG CAP PO SCH (09:00)
[2018-04-12 12:09] VITALS: BP 140/67
--- NOTE | 2018-04-12 13:37 | Consultation ---
DATE OF CONSULTATION: CARDIOLOGY CONSULTATION REASON FOR CONSULTATION: Chest pain. HISTORY OF PRESENT ILLNESS: This is a 77-year-old woman who has a history of Takotsubo cardiomyopathy with recovered left ventricular systolic function, asthma, hyperlipidemia, rheumatoid arthritis, gastroesophageal reflux disease, pulmonary embolism, formerly on anticoagulation. However, suffered an intracranial hemorrhage, status post evacuation and inferior vena cava filter placement. The patient was having dental work done after losing a molar cap. The patient received lidocaine with epinephrine, and then experienced chest pain with elevated blood pressures. She reports that her chest pain has completely resolved. She reported a left anterior chest pressure with radiation to the left arm, mild to moderate in intensity, and quickly relieved. No shortness of breath, palpitations or near syncopal symptoms. Upon arrival here, she was mildly hypertensive with 3 sets of negative cardiac enzymes. REVIEW OF SYSTEMS: A 12-point review of systems was conducted, and is negative as above in the HPI. PAST MEDICAL HISTORY: Hypertension, hyperlipidemia, prior Takotsubo cardiomyopathy, prior pulmonary embolism, status post inferior vena cava filter, intracranial hemorrhage, status post evacuation. PAST SURGICAL HISTORY: Craniotomy, inferior vena cava placement. FAMILY HISTORY: No premature coronary artery disease or sudden cardiac . SOCIAL HISTORY: No current illicit drug use, alcohol use or tobacco use. ALLERGIES: PENICILLIN, CHLORAMPHENICOL, LEVOFLOXACIN, MUPIROCIN, AND PIPERACILLIN. MEDICATIONS: See medication reconciliation form. PHYSICAL EXAMINATION VITALS: Temperature is 97.5, heart rate is 55, blood pressure is 140/67, oxygen saturation is 98% on room air, respirations are 18. GENERAL: This is a well-appearing elderly woman lying comfortably in bed in no apparent distress. Alert and oriented times 3. HEENT: Head is normocephalic and atraumatic. Eyes: Extraocular muscles are intact. Anicteric sclerae. NECK: No JVD. No bruits. CARDIOVASCULAR: Regular rate and rhythm. Normal S1 and S2. Mild diastolic murmur heard best at the left lower sternal border. LUNGS: Clear to auscultation. ABDOMEN: Soft, nontender and nondistended. Normoactive bowel sounds. EXTREMITIES: No clubbing, cyanosis or edema. VASCULAR: Two plus pulses. SKIN: Warm, dry and intact. NEUROLOGIC: No focal deficits noted. Cranial nerves grossly intact. PSYCHIATRIC: Normal mood and affect. CARDIOVASCULAR MEDICATIONS: Reviewed. All laboratory data reviewed. Notable for hemoglobin of 10.4. Three sets of negative cardiac enzymes. BNP of 102. Creatinine of 0.83. Chest x-ray shows no acute thoracic abnormality. A 2-D echocardiogram showed a preserved left ventricular systolic function with an estimated ejection fraction of 55% to 60% with mild to moderate aortic regurgitation. IMPRESSION 1. Precordial pain. 2. Hypertension. 3. Bradycardia. 4. Aortic regurgitation. 5. History of pulmonary embolism: Status post anticoagulation and inferior vena cava filter placement. 6. History of intracranial hemorrhage: Status post evacuation. RECOMMENDATIONS: Currently, this patient is asymptomatic. Her electrocardiogram showed no active S/T changes. She has 3 sets of negative cardiac enzymes. Chest x-ray shows no acute thoracic abnormalities. Her left ventricular ejection fraction is preserved. The patient may be discharged from a cardiovascular standpoint with outpatient stress testing. Continue current cardiovascular medications except for Coreg. She was bradycardic and would discontinue this until she is able to tolerate this. Thank you for the consultation. Job#: [id number] MONICA
[2018-04-12] MEDS ORDERED: PRAVASTATIN 20 MG TAB PO SCH (21:00)
[2018-04-12] MEDS ORDERED: MONTELUKAST SODIUM 10 MG TAB PO SCH (21:00)
== END 2018-04-12 12:51 | disposition home or self-care (01) ==
LOC: ER 11:15 → ERHOLD 15:59 → MED/SURG 18:22 → ERHOLD 18:23 → MED/SURG 18:27
PROVIDERS: ADMIT Internal Medicine; ATTEND Internal Medicine
DX: R07.2 Precordial pain (principal); R00.1 Bradycardia, unspecified; R07.89 Other chest pain; R68.84 Jaw pain; I25.10 Atherosclerotic heart disease of native coronary artery without angina pectoris; E78.5 Hyperlipidemia, unspecified; Z86.73 Personal history of transient ischemic attack (TIA), and cerebral infarction without residual deficits; Z87.891 Personal history of nicotine dependence; Z82.49 Family history of ischemic heart disease and other diseases of the circulatory system; Z86.711 Personal history of pulmonary embolism; I35.1 Nonrheumatic aortic (valve) insufficiency; Z88.1 Allergy status to other antibiotic agents; Z88.0 Allergy status to penicillin; Z88.8 Allergy status to other drugs, medicaments and biological substances; I11.0 Hypertensive heart disease with heart failure; I50.22 Chronic systolic (congestive) heart failure; M06.9 Rheumatoid arthritis, unspecified; K21.9 Gastro-esophageal reflux disease without esophagitis
CPT/HCPCS: 36415 ×2; 71045 ×2; 80053 ×2; 80061; 81001; 82550 ×2; 82553 ×2; 83880; 84484 ×2; 85025 ×2; 85610; 85730; 93005; 93306; 94640; 99284; G0378 ×2

== ENCOUNTER → 2019-10-30 | Outpatient (CLI) | payer MEDICARE ==
[~2019-10-30] MED LIST changes: +KEFLEX500 MG PO
== END ==
LOC: RESP 10:40
PROVIDERS: ATTEND Internal Medicine
DX: J45.40 Moderate persistent asthma, uncomplicated (principal)
CPT/HCPCS: 94060; 94727; 94729

== ENCOUNTER 2020-12-06 10:59 | Inpatient (IN) | payer MEDICARE ==
[~2020-12-06] VITALS: Ht 154.9 cm; Wt 88.9 kg
[2020-12-06 11:47] LABS: BASOPHILS # (AUTO) 0.1 (0.0-0.1); BASOPHILS % 0.6 % (0.0-1.0); EOSINOPHILS # (AUTO) 0.2 (0.0-0.4); EOSINOPHILS % 1.8 % (0.0-6.0); HEMATOCRIT 35.7 % (34.2-44.1); HEMOGLOBIN 11.2 g/dL (12.0-16.0); LYMPHOCYTES # (AUTO) 1.2 (1.0-3.2); LYMPHOCYTES % 13.4 % (18.0-39.1); MEAN CORPUSCULAR HEMOGLOBIN 29.2 pg (28-32); MEAN CORPUSCULAR HGB CONC 31.4 g/dL (31-35); MEAN CORPUSCULAR VOLUME 93.2 fL (81-99); MONOCYTES # (AUTO) 0.8 (0.2-0.8); MONOCYTES % 9.4 % (4.4-11.3); NEUTROPHILS # (AUTO) 6.6 (2.1-6.9); NEUTROPHILS % 74.3 % (38.7-80.0); PLATELET COUNT 217 x10e3/uL (140-360); RED BLOOD COUNT 3.83 x10e6/uL (3.6-5.1); RED CELL DISTRIBUTION WIDTH 14.1 % (11.7-14.4)
[2020-12-06 12:22] LABS: ALBUMIN 3.6 g/dL (3.5-5.0); ALBUMIN/GLOBULIN RATIO 1.1 (0.8-2.0); ANION GAP 13.8 mmol/L (8-16); CALCIUM 9.6 mg/dL (8.4-10.2); CREATININE, SERUM 1.26 mg/dL (0.57-1.11); POTASSIUM 3.8 mmol/L (3.5-5.1)
[2020-12-06 12:30] LABS: CREATINE KINASE MB 1.9 ng/mL (0-5.0)
[2020-12-06] MEDS ORDERED: SODIUM CHLORIDE 0.9% 50ML 50 ML ONE (12:58)
[2020-12-06] MEDS ORDERED: IOPAMIDOL 370 MG/ML 200 ML INFUS..BTL INJ ONE (12:58)
[2020-12-06] MEDS ORDERED: SODIUM CHLORIDE 0.9% 500ML 500 ML IV STA (13:15)
[2020-12-06] MEDS: CEFEPIME 1 GM in SODIUM CHLORIDE 0.9% 50ML 50 ML IV SCH (14:28)
[2020-12-06] MEDS ORDERED: Vancomycin IV 1 GM in SODIUM CHLORIDE 0.9% 250ML 250 ML IV SCH (15:00)
[2020-12-07] VITALS (8 sets, daily range): BP systolic 137–167; BP diastolic 61–87
[2020-12-07] MEDS ORDERED: SODIUM CHLORIDE 0.9% 250ML 250 ML ONE (01:13)
[2020-12-07] MEDS: CEFEPIME 1 GM in SODIUM CHLORIDE 0.9% 50ML 50 ML IV SCH ×2 (01:36→14:26)
[2020-12-07] MEDS ORDERED: proair IH (01:56)
[2020-12-07] MEDS ORDERED: albuterol (01:56)
[2020-12-07] MEDS ORDERED: SIMVASTATIN40 MG PO (01:56)
[2020-12-07] MEDS ORDERED: hydrochloroquine PO (01:56)
[2020-12-07] MEDS ORDERED: PREDNISONE5 MG PO (01:56)
[2020-12-07] MEDS ORDERED: NORVASC5 MG PO (02:38)
[2020-12-07] MEDS ORDERED: VESICARE5 MG PO (02:38)
[2020-12-07] MEDS ORDERED: BREO ELLIPTA 21 EACH INH (02:38)
[2020-12-07] MEDS ORDERED: [UNRECOGNIZED DRUG - OTHER] PO (02:38)
[2020-12-07] MEDS: MONTELUKAST SODIUM 10 MG TAB PO SCH ×2 (02:50→20:22)
[2020-12-07] MEDS: METHYLPREDNISOLONE SOD SUCC 40 MG/ML VIAL 1ML IV SCH ×3 (05:44→21:14)
[2020-12-07 06:16] LABS: BASOPHILS % 0.6 % (0.0-1.0); EOSINOPHILS # (AUTO) 0.2 (0.0-0.4); EOSINOPHILS % 2.3 % (0.0-6.0); HEMATOCRIT 31.4 % (34.2-44.1); HEMOGLOBIN 9.6 g/dL (12.0-16.0); LYMPHOCYTES # (AUTO) 1.5 (1.0-3.2); LYMPHOCYTES % 20.6 % (18.0-39.1); MEAN CORPUSCULAR HEMOGLOBIN 28.4 pg (28-32); MEAN CORPUSCULAR HGB CONC 30.6 g/dL (31-35); MEAN CORPUSCULAR VOLUME 92.9 fL (81-99); MONOCYTES # (AUTO) 0.8 (0.2-0.8); MONOCYTES % 11.4 % (4.4-11.3); NEUTROPHILS # (AUTO) 4.7 (2.1-6.9); NEUTROPHILS % 64.5 % (38.7-80.0); PLATELET COUNT 169 x10e3/uL (140-360); RED BLOOD COUNT 3.38 x10e6/uL (3.6-5.1); RED CELL DISTRIBUTION WIDTH 13.9 % (11.7-14.4)
[2020-12-07] MEDS ORDERED: FUROSEMIDE INJ 10 MG/ML 4 ML VIAL IV ONE (06:30)
[2020-12-07 06:41] LABS: ALBUMIN 3.1 g/dL (3.5-5.0); ALBUMIN/GLOBULIN RATIO 1.1 (0.8-2.0); ANION GAP 12.7 mmol/L (8-16); CALCIUM 8.9 mg/dL (8.4-10.2); CREATININE, SERUM 0.82 mg/dL (0.57-1.11); POTASSIUM 3.7 mmol/L (3.5-5.1)
[2020-12-07] MEDS: LISINOPRIL 10 MG TAB PO SCH ×2 (09:42→18:12)
[2020-12-07] MEDS: AMLODIPINE BESYLATE 5 MG TAB PO SCH (09:42)
[2020-12-07] MEDS ORDERED: OMEPRAZOLE-BIC1 EACH PO (09:53)
[2020-12-07] MEDS ORDERED: NASACORT16.9 ML (09:56)
[2020-12-07] MEDS ORDERED: BREO ELLIPTA 11 EACH INH (09:56)
[2020-12-07] MEDS: Vancomycin IV 1 GM in SODIUM CHLORIDE 0.9% 250ML 250 ML IV SCH (18:12)
[2020-12-07] MEDS: ALBUTEROL/IPRATROPIUM 3 ML NEB NEB PRN (19:25)
[2020-12-07] MEDS: BUDESONIDE 0.25 MG/2 ML NEB NEB SCH (19:40)
[2020-12-07] MEDS: SIMVASTATIN 40 MG TAB PO SCH (20:22)
[2020-12-07] MEDS: SOLIFENACIN SUCCINATE 5 MG TAB PO SCH (20:22)
[2020-12-07] MEDS ORDERED: MONTELUKAST SODIUM 10 MG TAB PO SCH (21:00)
[2020-12-08] VITALS (8 sets, daily range): BP systolic 118–148; BP diastolic 69–98
[2020-12-08] MEDS: ALBUTEROL/IPRATROPIUM 3 ML NEB NEB PRN ×4 (02:00→19:45)
[2020-12-08] MEDS: CEFEPIME 1 GM in SODIUM CHLORIDE 0.9% 50ML 50 ML IV SCH ×2 (02:05→14:00)
[2020-12-08] MEDS ORDERED: FUROSEMIDE INJ 10 MG/ML 2 ML VIAL IV ONE (03:00)
[2020-12-08] MEDS ORDERED: FUROSEMIDE INJ 10 MG/ML 4 ML VIAL ONE (03:15)
[2020-12-08] MEDS: METHYLPREDNISOLONE SOD SUCC 40 MG/ML VIAL 1ML IV SCH ×2 (05:41→17:00)
[2020-12-08] MEDS: BUDESONIDE 0.25 MG/2 ML NEB NEB SCH ×2 (07:20→19:45)
[2020-12-08] MEDS: AMLODIPINE BESYLATE 5 MG TAB PO SCH (09:32)
[2020-12-08] MEDS: LISINOPRIL 10 MG TAB PO SCH ×2 (09:32→17:00)
[2020-12-08] MEDS: TRIAMCINOLONE ACETONIDE INH SCH (09:33)
[2020-12-08] MEDS: VILANTEROL INH SCH (09:33)
[2020-12-08] MEDS: SODIUM BICARBONATE PO SCH (09:33)
[2020-12-08] MEDS: FLUTICASONE INH SCH (09:33)
[2020-12-08] MEDS: OMEPRAZOLE PO SCH (09:33)
[2020-12-08] MEDS: Vancomycin IV 1 GM in SODIUM CHLORIDE 0.9% 250ML 250 ML IV SCH (17:00)
[2020-12-08] MEDS: SIMVASTATIN 40 MG TAB PO SCH (21:33)
[2020-12-08] MEDS: SOLIFENACIN SUCCINATE 5 MG TAB PO SCH (21:33)
[2020-12-08] MEDS: MONTELUKAST SODIUM 10 MG TAB PO SCH (21:33)
[2020-12-09] VITALS (7 sets, daily range): BP systolic 115–158; BP diastolic 57–90
[2020-12-09] MEDS: CEFEPIME 1 GM in SODIUM CHLORIDE 0.9% 50ML 50 ML IV SCH ×2 (02:00→14:14)
[2020-12-09] MEDS: FLUTICASONE INH SCH (09:00)
[2020-12-09] MEDS: VILANTEROL INH SCH (09:00)
[2020-12-09] MEDS: TRIAMCINOLONE ACETONIDE INH SCH (09:00)
[2020-12-09] MEDS: OMEPRAZOLE PO SCH (09:00)
[2020-12-09] MEDS: SODIUM BICARBONATE PO SCH (09:00)
[2020-12-09] MEDS: LISINOPRIL 10 MG TAB PO SCH (09:29)
[2020-12-09] MEDS: AMLODIPINE BESYLATE 5 MG TAB PO SCH (09:29)
[2020-12-09] MEDS: METHYLPREDNISOLONE SOD SUCC 40 MG/ML VIAL 1ML IV SCH ×2 (09:29→15:34)
[2020-12-09] MEDS: BUDESONIDE 0.25 MG/2 ML NEB NEB SCH (09:42)
== END 2020-12-09 15:38 | disposition home or self-care (01) | DRG 202 ==
LOC: ER 11:55 → ERHOLD 13:57 → MED/SURG3 22:10
PROVIDERS: ADMIT Internal Medicine; ATTEND Internal Medicine
DX: J45.901 Unspecified asthma with (acute) exacerbation (principal); J44.1 Chronic obstructive pulmonary disease with (acute) exacerbation; Z20.822 Contact with and (suspected) exposure to COVID-19; I25.2 Old myocardial infarction; Z86.718 Personal history of other venous thrombosis and embolism; Z79.01 Long term (current) use of anticoagulants; M19.90 Unspecified osteoarthritis, unspecified site; E78.5 Hyperlipidemia, unspecified; M06.9 Rheumatoid arthritis, unspecified; Z86.711 Personal history of pulmonary embolism; Z86.73 Personal history of transient ischemic attack (TIA), and cerebral infarction without residual deficits; Z96.659 Presence of unspecified artificial knee joint; I12.9 Hypertensive chronic kidney disease with stage 1 through stage 4 chronic kidney disease, or unspecified chronic kidney disease; N18.30 Chronic kidney disease, stage 3 unspecified; D64.9 Anemia, unspecified; E66.9 Obesity, unspecified; Z68.37 Body mass index [BMI] 37.0-37.9, adult
CPT/HCPCS: 36415; 71260; 80053; 82550; 82553; 83605; 84484; 85025; 87040; 94640; 99284; J0692; J1940; J2920; J3370; J7040; J7050; Q9967; U0002

== ENCOUNTER 2021-08-24 18:14 | Emergency (ER) | payer MEDICARE ==
[~2021-08-24] VITALS: Ht 152.4 cm; Wt 83.9 kg
[~2021-08-24 18:14] MED LIST changes: +BREO ELLIPTA 11 EACH INH; +BREO ELLIPTA 21 EACH INH; +NASACORT16.9 ML; +NORVASC5 MG PO; +OMEPRAZOLE-BIC1 EACH PO; +PREDNISONE5 MG PO; +SIMVASTATIN40 MG PO; +[UNRECOGNIZED DRUG - OTHER] PO; +albuterol; +hydrochloroquine PO; +proair IH
[2021-08-24] MEDS ORDERED: SODIUM CHLORIDE 0.9% 500ML 500 ML ONE (21:29)
[2021-08-24] MEDS ORDERED: SODIUM CHLORIDE 0.9% 500ML 500 ML IV ONE (21:30)
[2021-08-24] MEDS ORDERED: MACROBID 100 M100 MG PO (21:39)
[2021-08-24] MEDS ORDERED: CEFTRIAXONE 1 GM VIAL IV ONE (21:45)
[2021-08-24] MEDS ORDERED: CEFTRIAXONE 1 GM VIAL ONE (21:54)
[2021-08-24 22:15] VITALS: BP 131/63
== END 2021-08-24 22:15 | disposition home or self-care (01) ==
LOC: FSED 18:46
DX: R53.1 Weakness (principal); N39.0 Urinary tract infection, site not specified; E86.0 Dehydration; N28.9 Disorder of kidney and ureter, unspecified; I10 Essential (primary) hypertension; I25.2 Old myocardial infarction; Z86.73 Personal history of transient ischemic attack (TIA), and cerebral infarction without residual deficits; Z86.711 Personal history of pulmonary embolism; R94.31 Abnormal electrocardiogram [ECG] [EKG]
CPT/HCPCS: 70450; 71045; 80053; 82553; 83880; 84484; 85025; 93005; 99284; J0696; J7040

== ENCOUNTER 2021-08-29 11:50 | Inpatient (IN) | payer MEDICARE ==
[~2021-08-29] VITALS: Ht 152.4 cm; Wt 86.2 kg
[~2021-08-29 11:50] MED LIST changes: +MACROBID 100 M100 MG PO
[2021-08-29] MEDS ORDERED: HEPARIN 25,000 UNIT 1,500 UNIT in DEXTROSE 5% 250ML 250 ML IV SCH (13:00)
[2021-08-29] MEDS ORDERED: SODIUM CHLORIDE FLUSH 10 ML SYR INJ PRN (13:00)
[2021-08-29] MEDS ORDERED: HEPARIN SOD (PORCINE) 5,000 UNIT/ML VIAL IV ONE ×2 (13:00→13:30)
[2021-08-29 13:16] LABS: BASOPHILS % 0.2 % (0.0-1.0); EOSINOPHILS # (AUTO) 0.1 (0.0-0.4); EOSINOPHILS % 0.5 % (0.0-6.0); HEMATOCRIT 30.5 % (34.2-44.1); HEMOGLOBIN 9.5 g/dL (12.0-16.0); LYMPHOCYTES % 11.4 % (18.0-39.1); MEAN CORPUSCULAR HEMOGLOBIN 29.1 pg (28-32); MEAN CORPUSCULAR HGB CONC 31.1 g/dL (31-35); MEAN CORPUSCULAR VOLUME 93.6 fL (81-99); MONOCYTES % 10.9 % (4.4-11.3); NEUTROPHILS % 76.5 % (38.7-80.0); PLATELET COUNT 173 x10e3/uL (140-360); RED BLOOD COUNT 3.26 x10e6/uL (3.6-5.1); RED CELL DISTRIBUTION WIDTH 13.4 % (11.7-14.4)
[2021-08-29 13:32] LABS: INR 0.96; PROTHROMBIN TIME 13.7 seconds (11.9-14.5)
[2021-08-29 13:33] LABS: PARTIAL THROMBOPLASTIN TIME 25.9 seconds (23.8-35.5)
[2021-08-29] MEDS: HEPARIN 25,000 UNIT 1,200 UNIT in DEXTROSE 5% 250ML 250 ML IV SCH (14:05)
[2021-08-29 14:27] LABS: ALBUMIN 3.4 g/dL (3.5-5.0); ALBUMIN/GLOBULIN RATIO 1.1 (0.8-2.0); CALCIUM 9.1 mg/dL (8.4-10.2); CREATININE, SERUM 1.35 mg/dL (0.57-1.11)
[2021-08-29 17:00] VITALS: BP_SYST 116; BP_SYST 135; BP_DIAS 57; BP_DIAS 62
[2021-08-29 17:23] VITALS: BP 135/62
[2021-08-29] MEDS ORDERED: DEXILANT60 MG PO (17:23)
[2021-08-29 18:23] VITALS: BP 135/62
[2021-08-29 20:00] VITALS: BP 105/62
[2021-08-30] VITALS (7 sets, daily range): BP systolic 98–149; BP diastolic 47–78
[2021-08-30] MEDS: HEPARIN 25,000 UNIT 1,200 UNIT in DEXTROSE 5% 250ML 250 ML IV SCH ×2 (02:00→23:08)
[2021-08-30] MEDS ORDERED: ALBUTEROL SULFATE HFA 8GM INHALATION AEROSOL INH PRN (10:15)
[2021-08-30] MEDS: HYDROCODONE/APAP 5MG-325MG TAB PO PRN ×2 (11:30→18:08)
[2021-08-30] MEDS: LISINOPRIL 10 MG TAB PO SCH (17:00)
[2021-08-30] MEDS: NITROFURANTOIN MACROCRYSTALS 100 MG CAP PO SCH (17:56)
[2021-08-30] MEDS ORDERED: ONDANSETRON HCL INJ 2MG/ML 2ML 2 MG/ML VIAL IV PRN (20:30)
[2021-08-30] MEDS: MONTELUKAST SODIUM 10 MG TAB PO SCH (20:57)
[2021-08-30] MEDS: SIMVASTATIN 40 MG TAB PO SCH (20:57)
[2021-08-30] MEDS ORDERED: HEPARIN 25,000 UNIT DRIP IV ONE (21:28)
[2021-08-31] VITALS (7 sets, daily range): BP systolic 98–142; BP diastolic 46–66
[2021-08-31 05:53] LABS: BASOPHILS # (AUTO) 0.1 (0.0-0.1); BASOPHILS % 0.9 % (0.0-1.0); EOSINOPHILS # (AUTO) 0.2 (0.0-0.4); EOSINOPHILS % 2.3 % (0.0-6.0); HEMATOCRIT 27.7 % (34.2-44.1); HEMOGLOBIN 8.5 g/dL (12.0-16.0); LYMPHOCYTES # (AUTO) 1.7 (1.0-3.2); LYMPHOCYTES % 24.2 % (18.0-39.1); MEAN CORPUSCULAR HEMOGLOBIN 29.3 pg (28-32); MEAN CORPUSCULAR HGB CONC 30.7 g/dL (31-35); MEAN CORPUSCULAR VOLUME 95.5 fL (81-99); MONOCYTES % 14.4 % (4.4-11.3); NEUTROPHILS % 57.5 % (38.7-80.0); PLATELET COUNT 181 x10e3/uL (140-360); RED CELL DISTRIBUTION WIDTH 13.5 % (11.7-14.4)
[2021-08-31 06:11] LABS: ANION GAP 12.3 mmol/L (8-16); CALCIUM 8.2 mg/dL (8.4-10.2); CREATININE, SERUM 1.03 mg/dL (0.57-1.11); POTASSIUM 4.3 mmol/L (3.5-5.1)
[2021-08-31] MEDS: HYDROCODONE/APAP 5MG-325MG TAB PO PRN ×2 (06:30→20:43)
[2021-08-31] MEDS ORDERED: AMLODIPINE BESYLATE 5 MG TAB PO SCH (09:00)
[2021-08-31] MEDS: NASALCORT NS SCH (09:00)
[2021-08-31] MEDS: BREO ELLIPTA INH SCH (09:00)
[2021-08-31] MEDS: NITROFURANTOIN MACROCRYSTALS 100 MG CAP PO SCH ×2 (09:48→18:08)
[2021-08-31] MEDS: MULTIVITAMINS/MINERALS TAB PO SCH (09:49)
[2021-08-31] MEDS: HYDROXYCHLOROQUINE SULFATE 200 MG TAB PO SCH (09:49)
[2021-08-31] MEDS: AMLODIPINE BESYLATE 5 MG TAB PO SCH (09:49)
[2021-08-31] MEDS: PANTOPRAZOLE SOD 40 MG TABEC PO SCH (09:50)
[2021-08-31] MEDS: PREDNISONE 5 MG TAB PO SCH (09:50)
[2021-08-31] MEDS: LISINOPRIL 10 MG TAB PO SCH ×2 (09:50→18:08)
[2021-08-31] MEDS: SIMVASTATIN 40 MG TAB PO SCH (20:43)
[2021-08-31] MEDS: MONTELUKAST SODIUM 10 MG TAB PO SCH (20:43)
[2021-09-01] VITALS (8 sets, daily range): BP systolic 100–128; BP diastolic 52–111
[2021-09-01] MEDS: HYDROCODONE/APAP 5MG-325MG TAB PO PRN (04:00)
[2021-09-01] MEDS ORDERED: METHYLPREDNISOLONE SOD SUCC 40 MG/ML VIAL 1ML IV ONE (04:45)
[2021-09-01] MEDS: BISACODYL 5 MG TAB EC PO SCH ×5 (04:57→23:56)
[2021-09-01 05:16] LABS: BASOPHILS % 0.6 % (0.0-1.0); EOSINOPHILS # (AUTO) 0.1 (0.0-0.4); EOSINOPHILS % 1.9 % (0.0-6.0); HEMATOCRIT 26.4 % (34.2-44.1); HEMOGLOBIN 8.3 g/dL (12.0-16.0); LYMPHOCYTES # (AUTO) 1.6 (1.0-3.2); LYMPHOCYTES % 23.8 % (18.0-39.1); MEAN CORPUSCULAR HEMOGLOBIN 28.9 pg (28-32); MEAN CORPUSCULAR HGB CONC 31.4 g/dL (31-35); MONOCYTES # (AUTO) 0.9 (0.2-0.8); MONOCYTES % 13.4 % (4.4-11.3); NEUTROPHILS # (AUTO) 4.1 (2.1-6.9); NEUTROPHILS % 59.6 % (38.7-80.0); PLATELET COUNT 200 x10e3/uL (140-360); RED BLOOD COUNT 2.87 x10e6/uL (3.6-5.1); RED CELL DISTRIBUTION WIDTH 13.5 % (11.7-14.4)
[2021-09-01] MEDS: BREO ELLIPTA INH SCH (05:25)
[2021-09-01 05:42] LABS: ALBUMIN 2.8 g/dL (3.5-5.0); CALCIUM 8.5 mg/dL (8.4-10.2); CREATININE, SERUM 0.92 mg/dL (0.57-1.11)
[2021-09-01] MEDS: NASALCORT NS SCH (09:00)
[2021-09-01] MEDS: PREDNISONE 5 MG TAB PO SCH (09:45)
[2021-09-01] MEDS: DOCUSATE SODIUM 100 MG CAP PO SCH (09:45)
[2021-09-01] MEDS: NITROFURANTOIN MACROCRYSTALS 100 MG CAP PO SCH ×2 (09:45→16:52)
[2021-09-01] MEDS: HYDROXYCHLOROQUINE SULFATE 200 MG TAB PO SCH (09:45)
[2021-09-01] MEDS: AMLODIPINE BESYLATE 5 MG TAB PO SCH (09:45)
[2021-09-01] MEDS: MULTIVITAMINS/MINERALS TAB PO SCH (09:45)
[2021-09-01] MEDS: LISINOPRIL 10 MG TAB PO SCH ×2 (09:46→16:52)
[2021-09-01] MEDS: PANTOPRAZOLE SOD 40 MG TABEC PO SCH (09:46)
[2021-09-01] MEDS ORDERED: ONDANSETRON HCL 4 MG ORAL DISINTEGRATING TAB PO PRN (11:00)
[2021-09-01] MEDS: HEPARIN 25,000 UNIT 1,200 UNIT in DEXTROSE 5% 250ML 250 ML IV SCH (13:50)
[2021-09-01] MEDS: WARFARIN SOD 5 MG TAB PO SCH (16:54)
[2021-09-01] MEDS: MONTELUKAST SODIUM 10 MG TAB PO SCH (20:53)
[2021-09-01] MEDS: SIMVASTATIN 40 MG TAB PO SCH (20:53)
[2021-09-02] VITALS (7 sets, daily range): BP systolic 102–132; BP diastolic 48–90
[2021-09-02 05:50] LABS: BASOPHILS % 0.3 % (0.0-1.0); EOSINOPHILS # (AUTO) 0.1 (0.0-0.4); EOSINOPHILS % 0.6 % (0.0-6.0); HEMATOCRIT 26.4 % (34.2-44.1); HEMOGLOBIN 8.2 g/dL (12.0-16.0); LYMPHOCYTES # (AUTO) 1.6 (1.0-3.2); LYMPHOCYTES % 15.8 % (18.0-39.1); MEAN CORPUSCULAR HGB CONC 31.1 g/dL (31-35); MEAN CORPUSCULAR VOLUME 93.3 fL (81-99); MONOCYTES # (AUTO) 1.2 (0.2-0.8); MONOCYTES % 11.3 % (4.4-11.3); NEUTROPHILS # (AUTO) 7.3 (2.1-6.9); NEUTROPHILS % 71.4 % (38.7-80.0); PLATELET COUNT 222 x10e3/uL (140-360); RED BLOOD COUNT 2.83 x10e6/uL (3.6-5.1); RED CELL DISTRIBUTION WIDTH 13.3 % (11.7-14.4)
[2021-09-02] MEDS: BISACODYL 5 MG TAB EC PO SCH ×3 (05:58→17:43)
[2021-09-02] MEDS: BREO ELLIPTA INH SCH (06:00)
[2021-09-02] MEDS ORDERED: HEPARIN 25,000 UNIT DRIP IV ONE (06:16)
[2021-09-02 06:19] LABS: ALBUMIN 2.9 g/dL (3.5-5.0); CALCIUM 9.4 mg/dL (8.4-10.2); CREATININE, SERUM 0.94 mg/dL (0.57-1.11)
[2021-09-02] MEDS: HEPARIN 25,000 UNIT 1,200 UNIT in DEXTROSE 5% 250ML 250 ML IV SCH (07:25)
[2021-09-02] MEDS: NITROFURANTOIN MACROCRYSTALS 100 MG CAP PO SCH ×2 (08:49→17:36)
[2021-09-02] MEDS: NASALCORT NS SCH (08:49)
[2021-09-02] MEDS: DOCUSATE SODIUM 100 MG CAP PO SCH (08:49)
[2021-09-02] MEDS: AMLODIPINE BESYLATE 5 MG TAB PO SCH (08:50)
[2021-09-02] MEDS: MULTIVITAMINS/MINERALS TAB PO SCH (08:50)
[2021-09-02] MEDS: PANTOPRAZOLE SOD 40 MG TABEC PO SCH (08:51)
[2021-09-02] MEDS: PREDNISONE 5 MG TAB PO SCH (08:51)
[2021-09-02] MEDS: HYDROXYCHLOROQUINE SULFATE 200 MG TAB PO SCH (08:51)
[2021-09-02] MEDS: LISINOPRIL 10 MG TAB PO SCH ×2 (08:53→17:38)
[2021-09-02] MEDS: WARFARIN SOD 5 MG TAB PO SCH (17:36)
[2021-09-02] MEDS: SIMVASTATIN 40 MG TAB PO SCH (20:54)
[2021-09-02] MEDS: MONTELUKAST SODIUM 10 MG TAB PO SCH (20:54)
[2021-09-03] VITALS (8 sets, daily range): BP systolic 94–137; BP diastolic 42–107
[2021-09-03 05:44] LABS: BASOPHILS % 0.5 % (0.0-1.0); EOSINOPHILS # (AUTO) 0.2 (0.0-0.4); EOSINOPHILS % 2.2 % (0.0-6.0); HEMATOCRIT 25.8 % (34.2-44.1); HEMOGLOBIN 7.8 g/dL (12.0-16.0); LYMPHOCYTES # (AUTO) 1.7 (1.0-3.2); MEAN CORPUSCULAR HEMOGLOBIN 28.8 pg (28-32); MEAN CORPUSCULAR HGB CONC 30.2 g/dL (31-35); MEAN CORPUSCULAR VOLUME 95.2 fL (81-99); MONOCYTES # (AUTO) 0.9 (0.2-0.8); MONOCYTES % 11.9 % (4.4-11.3); NEUTROPHILS # (AUTO) 4.6 (2.1-6.9); NEUTROPHILS % 61.9 % (38.7-80.0); PLATELET COUNT 221 x10e3/uL (140-360); RED BLOOD COUNT 2.71 x10e6/uL (3.6-5.1); RED CELL DISTRIBUTION WIDTH 13.7 % (11.7-14.4)
[2021-09-03 05:51] LABS: INR 1.55; PROTHROMBIN TIME 19.9 seconds (11.9-14.5)
[2021-09-03] MEDS: BISACODYL 5 MG TAB EC PO SCH ×4 (06:00→17:06)
[2021-09-03] MEDS: BREO ELLIPTA INH SCH (06:00)
[2021-09-03 06:01] LABS: ALBUMIN 2.7 g/dL (3.5-5.0); ANION GAP 11.1 mmol/L (8-16); CALCIUM 8.3 mg/dL (8.4-10.2); CREATININE, SERUM 0.89 mg/dL (0.57-1.11); POTASSIUM 4.1 mmol/L (3.5-5.1)
[2021-09-03] MEDS: NASALCORT NS SCH (09:00)
[2021-09-03] MEDS: AMLODIPINE BESYLATE 5 MG TAB PO SCH (09:23)
[2021-09-03] MEDS: DOCUSATE SODIUM 100 MG CAP PO SCH (09:23)
[2021-09-03] MEDS: NITROFURANTOIN MACROCRYSTALS 100 MG CAP PO SCH ×2 (09:23→17:06)
[2021-09-03] MEDS: PREDNISONE 5 MG TAB PO SCH (09:23)
[2021-09-03] MEDS: MULTIVITAMINS/MINERALS TAB PO SCH (09:23)
[2021-09-03] MEDS: HYDROXYCHLOROQUINE SULFATE 200 MG TAB PO SCH (09:23)
[2021-09-03] MEDS: LISINOPRIL 10 MG TAB PO SCH ×2 (09:24→17:03)
[2021-09-03] MEDS: PANTOPRAZOLE SOD 40 MG TABEC PO SCH (09:24)
[2021-09-03] MEDS: HEPARIN 25,000 UNIT 1,200 UNIT in DEXTROSE 5% 250ML 250 ML IV SCH (14:37)
[2021-09-03] MEDS: WARFARIN SOD 5 MG TAB PO SCH (17:05)
[2021-09-03] MEDS ORDERED: BISACODYL 5 MG TAB EC PO PRN (19:45)
[2021-09-03] MEDS: MONTELUKAST SODIUM 10 MG TAB PO SCH (20:57)
[2021-09-03] MEDS: SIMVASTATIN 40 MG TAB PO SCH (20:57)
[2021-09-04] VITALS: BP 125/62
[2021-09-04 04:07] VITALS: BP 139/65
[2021-09-04] MEDS: BREO ELLIPTA INH SCH (05:43)
[2021-09-04 06:24] LABS: BASOPHILS % 0.4 % (0.0-1.0); EOSINOPHILS # (AUTO) 0.2 (0.0-0.4); EOSINOPHILS % 2.4 % (0.0-6.0); HEMATOCRIT 26.7 % (34.2-44.1); HEMOGLOBIN 8.4 g/dL (12.0-16.0); LYMPHOCYTES # (AUTO) 1.7 (1.0-3.2); LYMPHOCYTES % 23.4 % (18.0-39.1); MEAN CORPUSCULAR HEMOGLOBIN 29.6 pg (28-32); MEAN CORPUSCULAR HGB CONC 31.5 g/dL (31-35); MONOCYTES # (AUTO) 0.8 (0.2-0.8); MONOCYTES % 10.7 % (4.4-11.3); NEUTROPHILS # (AUTO) 4.6 (2.1-6.9); NEUTROPHILS % 62.4 % (38.7-80.0); PLATELET COUNT 234 x10e3/uL (140-360); RED BLOOD COUNT 2.84 x10e6/uL (3.6-5.1); RED CELL DISTRIBUTION WIDTH 13.6 % (11.7-14.4)
[2021-09-04 06:38] LABS: INR 2.95; PROTHROMBIN TIME 32.8 seconds (11.9-14.5)
[2021-09-04 06:52] LABS: ALBUMIN 2.7 g/dL (3.5-5.0); ANION GAP 11.9 mmol/L (8-16); CALCIUM 8.3 mg/dL (8.4-10.2); CREATININE, SERUM 0.81 mg/dL (0.57-1.11); POTASSIUM 3.9 mmol/L (3.5-5.1)
[2021-09-04 07:08] LABS: INR 2.97
[2021-09-04 07:09] LABS: PARTIAL THROMBOPLASTIN TIME 57.7 seconds (23.8-35.5)
[2021-09-04 07:48] VITALS: BP 142/53
[2021-09-04 07:50] VITALS: BP 142/53
[2021-09-04] MEDS: DOCUSATE SODIUM 100 MG CAP PO SCH (08:19)
[2021-09-04] MEDS: NITROFURANTOIN MACROCRYSTALS 100 MG CAP PO SCH (08:20)
[2021-09-04] MEDS: AMLODIPINE BESYLATE 5 MG TAB PO SCH (08:20)
[2021-09-04] MEDS: PANTOPRAZOLE SOD 40 MG TABEC PO SCH (08:20)
[2021-09-04] MEDS: LISINOPRIL 10 MG TAB PO SCH (08:20)
[2021-09-04] MEDS: MULTIVITAMINS/MINERALS TAB PO SCH (08:20)
[2021-09-04] MEDS: HYDROXYCHLOROQUINE SULFATE 200 MG TAB PO SCH (08:20)
[2021-09-04] MEDS: PREDNISONE 5 MG TAB PO SCH (08:20)
[2021-09-04] MEDS: NASALCORT NS SCH (08:21)
== END 2021-09-04 09:56 | disposition home or self-care (01) | DRG 301 ==
LOC: ER 12:34 → ERHOLD 12:59 → MED/SURG2 16:41
PROVIDERS: ADMIT Internal Medicine; ATTEND Internal Medicine
DX: I82.412 Acute embolism and thrombosis of left femoral vein (principal); E66.01 Morbid (severe) obesity due to excess calories; Z68.37 Body mass index [BMI] 37.0-37.9, adult; I11.9 Hypertensive heart disease without heart failure; Z95.828 Presence of other vascular implants and grafts; M06.9 Rheumatoid arthritis, unspecified; E78.5 Hyperlipidemia, unspecified; D64.9 Anemia, unspecified; E78.00 Pure hypercholesterolemia, unspecified; I25.2 Old myocardial infarction; Z86.73 Personal history of transient ischemic attack (TIA), and cerebral infarction without residual deficits; Z86.718 Personal history of other venous thrombosis and embolism; Z86.711 Personal history of pulmonary embolism; Z88.1 Allergy status to other antibiotic agents; Z88.0 Allergy status to penicillin; Z88.8 Allergy status to other drugs, medicaments and biological substances; Z20.822 Contact with and (suspected) exposure to COVID-19
CPT/HCPCS: 36415; 80048; 80053; 85025; 85610; 85730; 93971; 94799; 97139; 99251; 99284; J1644; J2405; J2920; J7512; Q0162; U0002